=== PATIENT | male | born 1965 ===

== ENCOUNTER → 2022-03-31 13:24 | Outpatient (CLI) | payer OTHER, SELFPAY ==
--- NOTE | ~2022-03-31 | XR_ITS ---
EXAMINATION: XR knee LT 2V DATE: 03/31/2022 14:05 INDICATION: Left knee pain TECHNIQUE: AP and crosstable lateral views of the left knee were obtained.. COMPARISON: None. FINDINGS: Alignment is normal. No fracture. Joint spaces appear normal on nonweightbearing imaging. Small mateo nal osteophytes at the medial compartment and along the inferior patella. No erosions. Moderate-sized left knee joint effusion. Small enthesophyte at the patellar insertion of the distal quadriceps tend on. IMPRESSION: 1. Moderate-sized left knee joint effusion. No acute osseous abnormality. Reviewed, dictated and finalized at location B.
== END ==
DX: M25.562 Pain in left knee (principal); M25.462 Effusion, left knee
CPT/HCPCS: 73560

== ENCOUNTER 2022-09-11 09:41 | Outpatient (CLI) | payer OTHER, SELFPAY ==
--- NOTE | ~2022-09-11 | XR_ITS ---
EXAMINATION: CT abdomen pelvis wo/w con, XR abdomen/kub 1V DATE: 09/11/2022 10:33 (accession [id number]), 09/11/2022 10:04 (accession [id number]) INDICATION: Gross hematuria TECHNIQUE: Computed tomography (CT) of the abdomen and pelvis was performed without and with 130 cc O mnipaque 350 intravenous contrast. The dose-length product was 2744.38 mGy-cm. Automated exposure con trol and iterative reconstruction technique were employed. KUB. COMPARISON: KUB dated 09/11/2022. FINDINGS: KUB: Moderate colonic fecal loading. Nonobstructive bowel pattern. There is lower thoracic and lumbar spondylosis. There is osteoarthritis of the hips. Gallstones are noted in the right upper abdomen. N o definite renal stones are identified on plain film study. CT abdomen/pelvis: lung bases are unremarkable. No significant pleural or pericardial effusion. There are gallstones. There are punctate nonobstructing left renal stones measuring 1 mm. Nonobstructive b owel gas pattern. Small fat-containing umbilical hernia. There are changes of right inguinal hernia r epair. No free air or free fluid. The liver, spleen, pancreas, adrenal glands and right kidney are un remarkable. There are small subcentimeter hypodensities of the left kidney, most likely benign cysts. Ureters are normal in course and caliber. Prostate gland is enlarged. There is prominent bladder bas e impression. No significant abnormality of the bladder. No acute osseous abnormality. Mild lumbar sp ondylosis. IMPRESSION: 1. Nonobstructing left nephrolithiasis. 2: Cholelithiasis. Reviewed, dictated and finalized at location A. ENT SUPPORT COUNSELOR IMPRESSION: 1. Nonobstructing left nephrolithiasis. 2: Cholelithiasis.
[2022-09-11 10:16] LABS: Estimated Glomerular Filt Rate > 60
== END 2022-09-11 09:42 | disposition home or self-care (01) ==
PROVIDERS: Visit Provider Nurse Practitioner Adult Health
DX: R31.0 Gross hematuria (principal); N20.0 Calculus of kidney; K80.20 Calculus of gallbladder without cholecystitis without obstruction
CPT/HCPCS: 74018; 74178; Q9967